=== PATIENT | male | born 1955 | race Caucasian/White ===

== ENCOUNTER 2017-04-25 18:31 | Emergency (ER) | payer OTHER ==
[~2017-04-25] VITALS: Ht 172.7 cm; Wt 81.6 kg
--- NOTE | 2017-04-25 18:50 | ED GENERAL ADULT ---
History of Present Illness General Chief Complaint: Seizure Stated Complaint: SEIZURE-LIKE ACTIVITY 15 MIN AGO, +HEADSTRIKE Source: patient Exam Limitations: no limitations Vital Signs & Intake/Output Vital Signs & Intake/Output Vital Signs Date Time Temp Pulse Resp B/P B/P Pulse O2 O2 Flow FiO2 Mean Ox Delivery Rate 04/25 2207 97.2 80 16 172/91 97 Room Air 04/25 1840 98.9 73 15 165/90 100 Room Air Allergies Coded Allergies: No Known Allergies (04/25/17) Reconcile Medications Multivitamin (Multi-Day Vitamins) 1 EACH TABLET 1 TAB PO DAILY SUPPLEMENT ( Reported) Phenobarbital 64.8 MG TABLET 1 TAB PO QAM PARTIAL COMPLEX SEIZURE DISORD ( Reported) Phenobarbital 64.8 MG TABLET 3 TAB PO QPM PARTIAL COMPLEX SEIZURE DISORD ( Reported) Triage Note: PT TO ED FOR SYNCOPAL EPISODE AT HOME, PER BROTHER PT HAD JUST WALKED IN FROM OUTSIDE WAS ACTING NORMALLY AND THEN SYNCOPIZED ON TO TILE FLOOR. PER BROTHER PT WAS UNCONSCIOUS FOR APPROX 10 SECONDS AND THEN WOKE UP SPONTANEOUSLY, PER BOTHER PT DID NOT APPEAR POST ICTAL AT ALL. ALERT AND ORIENTED IN TRIAGE, DENIES DIZZINESS OR CP P/T FALL, STATING "I FEEL FINE NOW, I FELT FINE ALL DAY". PT ARRIVES TO TRIAGE WITH SMALL LAC TO CORNER OF R EYE. BLEEDING CONTROLLED. Triage Nurses Notes Reviewed? yes Onset: Abrupt Duration: hour(s): Timing: recent history HPI: 04/25/17 8:20 PM 61-year-old man presents to the emergency department complaining of syncope. The patient states he was in his usual state of health until today when he had a sudden episode of syncope. He did cut his right periorbital area. He denies vomiting,headache chest pain, shortness of breath or other complaints. He does have a history of a seizure disorder. He is currently on phenobarbital. He says he's had syncope in the past. Last episode was years ago. (JULIANNE GEE DO) Past History Travel History Traveled to [place] past 21 day No Medical History Any Pertinent Medical History? see below for history Neurological: SEIZURE DISORDER EENT: NONE Cardiovascular: NONE Respiratory: NONE Gastrointestinal: NONE Hepatic: NONE Renal: NONE Musculoskeletal: NONE Psychiatric: NONE Endocrine: NONE Blood Disorders: NONE Cancer(s): NONE Surgical History Surgical History: none Psychosocial History What is your primary language Mongolian Tobacco Use: Never used Daily Tobacco Use Amount/Type: =< 4 Cigarettes daily ETOH Use: denies use Illicit Drug Use: denies illicit drug use Family History Hx Contributory? No (JULIANNE GEE DO) Review of Systems Review of Systems Constitutional: Denies: fever. EENTM: Denies: visual changes. Respiratory: Denies: short of breath. Cardiovascular: Denies: chest pain. GI: Denies: abdominal pain. Genitourinary: Reports: no symptoms. Musculoskeletal: Reports: no symptoms. Skin: Reports: see HPI. Neurological/Psychological: Reports: no symptoms. Hematologic/Endocrine: Reports: bleeding. (JULIANNE GEE DO) Physical Exam Physical Exam General Appearance: well developed/nourished, alert, awake Head: normal appearance Eyes: Bilateral: normal appearance, PERRL, EOMI. Ears, Nose, Throat: normal ENT inspection Neck: supple, full range of motion Respiratory: normal breath sounds, chest non-tender, no respiratory distress Cardiovascular: regular rate/rhythm Peripheral Pulses: 4+ radial (R), 4+ radial (L) Gastrointestinal: soft, non-tender Back: normal inspection Extremities: no edema Neurologic/Psych: no motor/sensory deficits, awake, alert, oriented x 3 Skin: intact, normal color, warm/dry, 1 INCH LACERATION RIGHT PERIORBITAL AREA Core Measures ACS in differential dx? No CVA/TIA Diagnosis: No Severe Sepsis Present: No Septic Shock Present: No (JULIANNE GEE DO) Progress Differential Diagnoses I considered the following diagnoses in my evaluation of the patient: [Seizure disorder head injury, dysrhythmia] Plan of Care: Orders Procedure Date/time Status LACTIC ACID 04/25 2143 Complete EKG 04/25 2023 Active Add-on Test (ER Only) 04/25 2022 Active MISTAKE 04/25 1843 Active URINE DRUGS OF ABUSE 04/25 1843 Complete TROPONIN LEVEL 04/25 1843 Complete LACTIC ACID 04/25 1843 Complete COMPREHENSIVE METABOLIC PANEL 04/25 1843 Complete CBC WITHOUT DIFFERENTIAL 04/25 1843 Complete Laboratory Tests 04/25/17 2159: Lactic Acid 1.4, Ref Lab Test Result Pending 04/25/17 1901: Urine Opiates Screen < 100.00, Methadone Screen < 40, Barbiturate Screen > 800 H, Ur Phencyclidine Scrn < 6.00, Amphetamines Screen < 100, U Benzodiazepines Scrn < 85, Urine Cocaine Screen < 50, Urine Cannabis Screen < 5.00 04/25/17 1850: Anion Gap 11, Estimated GFR > 60, BUN/Creatinine Ratio 16.7, Glucose 87, Lactic Acid 2.7 H, Calcium 9.0, Total Bilirubin 0.6, AST 38, ALT 38, Alkaline Phosphatase 104, Troponin I < 0.01, Total Protein 7.4, Albumin 4.5, Globulin 2.9 , Albumin/Globulin Ratio 1.6, CBC w Diff NO MAN DIFF REQ, RBC 4.62 L, MCV 93.7, MCH 31.3 H, RDW 13.3, MPV 8.0, Gran % 55.6, Lymphocytes % 32.5, Monocytes % 8.4 , Eosinophils % 3.1, Basophils % 0.4, Absolute Granulocytes 4.0, Absolute Lymphocytes 2.3, Absolute Monocytes 0.6, Absolute Eosinophils 0.2, Absolute Basophils 0, PUBS MCHC 33.4 Initial ED EKG: NSR (JULIANNE GEE DO) Comments: Patient was lying on the stretcher talking to family when all of a sudden he began to stare off into space and then became acutely confused and hypothenar stretcher and said he had to leave. The symptoms lasted approximately 20 seconds and then all resolved. This episode was very different from his prior seizures. Discussed with his neurologist. At 500 mg twice a day. Patient will follow up. (GOLDIE BURKS,OPAL Saeed) Departure Departure Condition: Stable Referrals: J[place] BURKS,KARON Campbell (PCP/Family) Departure Forms: Customer Survey General Discharge Information Comments Procedure Under sterile technique and local anesthesia the 1 inch right periorbital laceration was closed using 4 6-0 Vicryl sutures. The wound was irrigated prior to closure. 5 mL of 1% lidocaine was utilized for anesthesia. Bacitracin was applied. CT scan of the head was ordered IV fluids were given Repeat lactic acid level was ordered The patient was signed out to Dr. Hopkins at 9 PM. (JULIANNE GEE DO) Departure Disposition: HOME OR SELF CARE Clinical Impression Primary Impression: Syncope Secondary Impressions: Seizure Additional Instructions: FOLLOW UP WITH YOUR NEUROLOGIST PETRA PARK TWICE A DAY RETURN FOR ANY CONCERNS Prescriptions: Current Visit Scripts Levetiracetam (Keppra) 1 TAB PO BID #60 TAB (GOLDIE BURKS,OPAL Saeed) Critical Care Note Critical Care Note Critical Care Time: non-applicable (JULIANNE GEE DO)
[2017-04-25 18:58] LABS: ABSOLUTE BASOPHIL COUNT 0 /CUMM (0.0-0.2); ABSOLUTE EOSINOPHIL COUNT 0.2 /CUMM (0.0-0.7); ABSOLUTE LYMPH COUNT 2.3 /CUMM (1.2-3.4); ABSOLUTE MONOCYTE COUNT 0.6 /CUMM (0.10-0.60); BASOPHIL % 0.4 % (0.0-2.0); EOSINOPHIL % 3.1 % (0-5); GRANULOCYTE % 55.6 % (42.2-75.2); HEMATOCRIT 43.3 % (42-52); MEAN CORPUSCULAR HGB 31.3 PG (27.0-31.0); MEAN CORPUSCULAR HGB CONC 33.4 G/DL (33.0-37.0); MEAN CORPUSCULAR VOLUME 93.7 FL (80.0-94.0); PLATELET COUNT 192 /CUMM (130-400); RBC DISTRIBUTION WIDTH 13.3 % (11.5-14.5); RED BLOOD CELL CT 4.62 /CUMM (4.70-6.10); WHITE BLOOD CELL COUNT 7.2 /CUMM (4.8-10.8)
--- NOTE | 2017-04-25 20:41 | CT SCAN REPORT ---
EXAMINATION: CT HEAD WITHOUT CONTRAST CLINICAL INFORMATION: Head injury after seizure. Rule out bleed. COMPARISON: None TECHNIQUE: Contiguous axial imaging was performed from the skull base to vertex without intravenous administration of contrast. DLP: 590.9 mGy-cm FINDINGS: There is no evidence of acute intracranial hemorrhage or territorial infarction. No abnormal mass effect or midline shift is seen. [place]bin to white matter differentiation is well preserved. No extra-axial fluid collections are identified. The ventricles are normal in size. There is mild low-density change in the uncal portion of the anteromedial right temporal lobe which is not well characterized on this noncontrast CT exam. The osseous structures and soft tissues are normal. The mastoid air cells and visualized portions of the paranasal sinuses are well aerated. IMPRESSION: No acute intracranial pathology. Indeterminate low-density change in the anteromedial right temporal lobe involving the uncal region, directly anterior to the temporal horn of the right lateral ventricle. An underlying lesion cannot be ruled out. A follow-up MRI of the brain without and with contrast following a dedicated seizure protocol and hippocampal views is recommended for further evaluation.
[2017-04-25] MEDS ORDERED: PHENOBARBITAL64.8 M1 PO ×2 (20:59→21:00)
[2017-04-25] MEDS ORDERED: MULTI-DAY VITA1 EACH PO (21:00)
[2017-04-25 22:07] VITALS: BP 172/91
[2017-04-25] MEDS ORDERED: KEPPRA500 M1 PO (22:57)
== END 2017-04-25 23:07 ==
LOC: ERH 18:31
PROVIDERS: Emergency Medicine
DX: S01.81XA Laceration without foreign body of other part of head, initial encounter (principal); R55 Syncope and collapse; R56.9 Unspecified convulsions; W19.XXXA Unspecified fall, initial encounter; Y93.9 Activity, unspecified; Y92.9 Unspecified place or not applicable
CPT/HCPCS: 80184; 80307; 93005; 93010; J1953